=== PATIENT | female | born 1970 | race Caucasian/White ===

== ENCOUNTER 2017-06-23 16:55 | Emergency (ER) | payer OTHER, BC ==
[~2017-06-23] VITALS: Ht 160 cm; Wt 115.3 kg
[2017-06-23] MEDS ORDERED: XARELTO1 EACH PO (19:14)
[2017-06-23 19:38] VITALS: BP 165/87
== END 2017-06-23 19:43 | disposition home or self-care (01) ==
LOC: EME 16:55
DX: I82.4Z1 Acute embolism and thrombosis of unspecified deep veins of right distal lower extremity (principal); Z98.890 Other specified postprocedural states
CPT/HCPCS: 93971; 99281; 99283

== ENCOUNTER 2017-07-09 19:14 | Emergency (ER) | payer OTHER, BC ==
[~2017-07-09] VITALS: Ht 162.6 cm; Wt 116.4 kg
[~2017-07-09 19:14] MED LIST: XARELTO1 EACH PO
[2017-07-09 21:56] VITALS: BP 166/91
== END 2017-07-09 21:57 | disposition home or self-care (01) ==
LOC: EME 19:14
DX: I82.491 Acute embolism and thrombosis of other specified deep vein of right lower extremity (principal); Z86.718 Personal history of other venous thrombosis and embolism; Z79.01 Long term (current) use of anticoagulants
CPT/HCPCS: 80048; 85027; 85610; 85730; 93971; 99281; 99284